=== PATIENT | male | born 1940 | race Caucasian/White ===

== ENCOUNTER → 2020-11-19 08:48 | Outpatient (CLI) | payer MEDICARE, BC, SELFPAY ==
[2020-11-19 17:11] LABS: COVID19 -Nasal RAPID Negative (Negative)
== END ==
PROVIDERS: PCP Family Medicine Sports Medicine; Visit Provider Physical Medicine & Rehabilitation
DX: Z20.822 Contact with and (suspected) exposure to COVID-19 (principal)
CPT/HCPCS: 87635; C9803

== ENCOUNTER 2020-11-20 08:01 | Outpatient (CLI) | payer MEDICARE, BC, SELFPAY ==
--- NOTE | 2020-11-20 08:05 | DI.RAD.S_ITS ---
PROCEDURE: PAIN L INTERLAMINAR/CAUDAL INJ INDICATIONS: SPONDYLOSIS COMPARISON: [facility], CR, XR LUMBAR SPINE 2 OR 3 VIEWS, 10/09/2020, 8:59. FINDINGS: Fluoroscopic spot filming was performed to verify placement of a spinal needle at the L2-L3 level, as labeled on the films. Appropriate location of the needle tip was confirmed by injection of iodinated contrast. L4-L5 spinous process fixation hardware can be seen. IMPRESSION: Intraprocedural examination within normal limits. Dictated by: Joaquin Parker M.D. on 11/20/2020 at 8:44 Approved by: Joaquin Parker M.D. on 11/20/2020 at 8:45
[2020-11-20 08:24] VITALS: BP 169/87; PULSE 70; RESP 19; TEMP 35.9; O2SAT 100
[2020-11-20 08:56] VITALS: BP 182/89; PULSE 70; RESP 16; O2SAT 100
[2020-11-20 09:00] VITALS: BP 189/91; PULSE 70; RESP 14; O2SAT 100
[2020-11-20] MEDS: BETAMETHASONE 30 MG/5 ML MDV 6 MG INJ (09:01)
[2020-11-20] MEDS: IOPAMIDOL 15 ML VIAL 3 ML INJ (09:01)
[2020-11-20] MEDS: BUPIVACAINE 0.25% (PF) VIAL 2 ML INJ (09:01)
[2020-11-20] MEDS: DEXAMETHASONE 10 MG/ML VIAL 20 MG INJ (09:02)
[2020-11-20 09:05] VITALS: BP 187/102; PULSE 69; RESP 17; O2SAT 100
[2020-11-20 09:09] VITALS: BP 183/96; PULSE 68; RESP 15; O2SAT 100
--- NOTE | 2020-11-20 09:13 | PM.PROC.IR.1 ---
Date/Time/Diagnoses Date of procedure: 11/20/20 Time of procedure: 09:13 Pre-procedure diagnosis: 1. HNP WITH RADICULAR FEATURES, 2. MULTILEVEL CENTRAL STENOSIS, Post-procedure diagnosis: same Procedure Notes Procedure: 1. FLUOROSCOPICALLY GUIDED CONTRAST CONTROLLED INTERLAMINAR EPIDURAL STEROID INJECTION - L2/3 Indications: Rl is referred by Dr. Verdugo for treatment of Bilateral Foraminal Stenosis L>R LE symptoms. Physician: Kaiden Dia Total Fluoroscopy time (seconds): 11 Total sedation minutes: 0 Complications: none Procedure in detail & Post-procedure care: FINDINGS Multilevel Central Spinal Stenosis with Nerve Root Compression DESCRIPTION OF PROCEDURE Fluoroscopically guided, contrast-controlled L2/3 translaminar epidural steroid injection. Following review of allergy and review of potential side effects and complications, including, but not necessarily limited to, infection, allergic reaction, local tissue breakdown, temporary as well as permanent nerve injury, paralysis, stroke and possible , the patient indicated that the patient understood and agreed to proceed. An informed consent document was signed by the patient, witnessed by a nurse, and placed in the patient's chart. Additionally, other treatment options including modalities, medications, and physical therapy were reviewed with the patient. After review of previous anaesthesic history and IV conscious sedation the patient was deemed safe to proceed with today?s procedure with IV conscious sedation as ASA class II designation. Safety time-out was performed to confirm patient ID, procedure to be performed and site of procedure. IV sedation was deemed unnecessary and thus not administered by the RN after DO order, titrated to patient comfort during the course of the procedure while the patient remained responsive to all verbal commands. In the prone position, following sterile prep and drape of the lumbar region,the L2/3 translaminar space was identified fluoroscopically. The skin was anesthetized via a 25-gauge, 1.5-inch needle with 1% lidocaine solution. At this point, a 22-gauge short bevel spinal needle was atraumatically introduced and advanced under fluoroscopic guidance into the region of the L2/3 translaminar space. Depth was confirmed on lateral view. Radiological data, including multiple fluoroscopic views of the lumbar spine, reveal a spinal needle at the L2/3 translaminar space. Lateral views then show placement of the needle in the epidural space. Subsequent views show contrast material flowing superiorly and inferiorly in the epidural space. No vascular or intrathecal uptake is observed. At this point, using loss of resistance technique with saline and air, the epidural space was entered. This was confirmed following negative aspiration with injection of approximately 1.5 cc of Isovue 200, showing excellent epidural flow without vascular or intrathecal uptake. At this point, 1cc of 1% lidocaine solution combined with 3cc or 20mg of dexamethasone and 6mg of betamethasone was injected without incident. The patient tolerated the procedure well without signs or symptoms of complications prior to transfer to the recovery area continued monitoring without incident. The patient was then transferred to the recovery area where they were observed for an appropriate period of time after the injection. The patient reported a VAS score of 6 prior to the procedure and a post-procedure VAS of 0. POST OP INSTRUCTIONS The patient was provided a Pain Log to continue to record their response to the target-specific procedure prior to follow-up visit with their referring physician. Additionally, specific post-injection care instructions and a contact number to our office were provided if concerns arise regarding possible complications associated with the procedure are suspected.
[2020-11-20 09:20] VITALS: BP 151/81; PULSE 70; RESP 19; O2SAT 99
== END 2020-11-20 09:20 | disposition home or self-care (01) ==
LOC: RAD 08:05
PROVIDERS: PCP Family Medicine Sports Medicine; Referring Provider Physical Medicine & Rehabilitation; Visit Provider Physical Medicine & Rehabilitation
DX: M51.26 Other intervertebral disc displacement, lumbar region (principal); M51.16 Intervertebral disc disorders with radiculopathy, lumbar region; M48.061 Spinal stenosis, lumbar region without neurogenic claudication
CPT/HCPCS: 62323; J0702; J1100; J2250; J3010

== ENCOUNTER 2021-04-11 09:17 | Outpatient (CLI) | payer MEDICARE, BC, SELFPAY ==
--- NOTE | 2021-04-11 09:19 | DI.RAD.S_ITS ---
PROCEDURE: PAIN L INTERLAMINAR/CAUDAL INJ INDICATIONS: SPONDYLOSIS COMPARISON: [facility], XA, PAIN L INTERLAMINAR/CAUDAL INJ, 11/20/2020, 9:02. FINDINGS: Fluoroscopic spot filming was performed to verify placement of a spinal needle at the L2-L3 level, as labeled on the films. Appropriate location of the needle tip was confirmed by injection of iodinated contrast. IMPRESSION: Intraprocedural examination within normal limits. Dictated by: Joaquin Parker M.D. on 04/11/2021 at 10:13 Approved by: Joaquin Parker M.D. on 04/11/2021 at 10:13
--- NOTE | 2021-04-11 09:39 | PC.NURSE ---
Declines IV or sedation. Patient had previous injection without sedation. Dr. Dia aware.
[2021-04-11 09:40] VITALS: BP 180/92; PULSE 70; RESP 16; TEMP 36.2; O2SAT 96
[2021-04-11 10:34] VITALS: BP 186/92; PULSE 70; RESP 16; O2SAT 98
[2021-04-11] MEDS: IOPAMIDOL 15 ML VIAL 3 ML INJ (10:42)
[2021-04-11 10:43] VITALS: BP 177/91; PULSE 70; RESP 15; O2SAT 97
[2021-04-11] MEDS: BETAMETHASONE 30 MG/5 ML MDV 12 MG INJ (10:43)
[2021-04-11] MEDS: BUPIVACAINE 0.25% (PF) VIAL 2 ML INJ (10:43)
[2021-04-11] MEDS: DEXAMETHASONE 10 MG/ML VIAL 20 MG INJ (10:44)
--- NOTE | 2021-04-11 10:47 | P.PCN_ITS ---
Date/Time/Diagnoses Date of procedure: 04/11/21 Time of procedure: 10:47 Pre-procedure diagnosis: 1. HNP WITH RADICULAR FEATURES, 2. MULTILEVEL CENTRAL STENOSIS, Post-procedure diagnosis: same Procedure Notes Procedure: 1. FLUOROSCOPICALLY GUIDED CONTRAST CONTROLLED INTERLAMINAR EPIDURAL STEROID INJECTION - L2/3 Indications: Rl is referred by Dr. Verdugo for treatment of Bilateral Foraminal Stenosis L>R LE symptoms. Physician: Kaiden Dia Total Fluoroscopy time (seconds): 11 Total sedation minutes: 0 Complications: none Procedure in detail & Post-procedure care: FINDINGS Multilevel Central Spinal Stenosis with Nerve Root Compression DESCRIPTION OF PROCEDURE Fluoroscopically guided, contrast-controlled L2/3 translaminar epidural steroid injection. Following review of allergy and review of potential side effects and complications, including, but not necessarily limited to, infection, allergic reaction, local tissue breakdown, temporary as well as permanent nerve injury, paralysis, stroke and possible , the patient indicated that the patient understood and agreed to proceed. An informed consent document was signed by the patient, witnessed by a nurse, and placed in the patient's chart. Additionally, other treatment options including modalities, medications, and physical therapy were reviewed with the patient. After review of previous anaesthesic history and IV conscious sedation the patient was deemed safe to proceed with today?s procedure with IV conscious sedation as ASA class II designation. Safety time-out was performed to confirm patient ID, procedure to be performed and site of procedure. IV sedation was accomplished with a combination of 2mg Versed and 50mcg of Fentanyl administered by the RN after DO order, titrated to patient comfort during the course of the procedure while the patient remained responsive to all verbal commands. In the prone position, following sterile prep and drape of the lumbar region,the L2/3 translaminar space was identified fluoroscopically. The skin was anesthetized via a 25-gauge, 1.5-inch needle with 1% lidocaine solution. At this point, a 22-gauge short bevel spinal needle was atraumatically introduced and advanced under fluoroscopic guidance into the region of the L2/3 translaminar space. Depth was confirmed on lateral view. Radiological data, including multiple fluoroscopic views of the lumbar spine, reveal a spinal needle at the L2/3 translaminar space. Lateral views then show placement of the needle in the epidural space. Subsequent views show contrast material flowing superiorly and inferiorly in the epidural space. No vascular or intrathecal uptake is observed. At this point, using loss of resistance technique with saline and air, the epidural space was entered. This was confirmed following negative aspiration with injection of approximately 1.5 cc of Isovue 200, showing excellent epidural flow without vascular or intrathecal uptake. At this point, 1 cc of 1% lidoc michelle solution combined with 4cc or 20mg of dexamethasone and 12mg of betamethasone was injected without incident. The patient tolerated the procedure well without signs or symptoms of complications prior to transfer to the recovery area continued monitoring without incident. The patient was then transferred to the recovery area where they were observed for an appropriate period of time after the injection. The patient reported a VAS score of 6 prior to the procedure and a post-procedure VAS of 0. POST OP INSTRUCTIONS The patient was provided a Pain Log to continue to record their response to the target-specific procedure prior to follow-up visit with their referring physician. Additionally, specific post-injection care instructions and a contact number to our office were provided if concerns arise regarding possible complications associated with the procedure are suspected.
[2021-04-11 10:50] VITALS: BP 183/92; PULSE 70; RESP 16; TEMP 36.2; O2SAT 97
== END 2021-04-11 10:55 | disposition home or self-care (01) ==
LOC: RAD 09:19
PROVIDERS: PCP Family Medicine Sports Medicine; Referring Provider Physical Medicine & Rehabilitation; Visit Provider Physical Medicine & Rehabilitation
DX: M51.16 Intervertebral disc disorders with radiculopathy, lumbar region (principal); M48.061 Spinal stenosis, lumbar region without neurogenic claudication
CPT/HCPCS: 62323; J0702; J1100

== ENCOUNTER → 2021-11-12 09:43 | Outpatient (CLI) | payer MEDICARE, BC, SELFPAY ==
[2021-11-12 12:55] LABS: COVID19 -Nasal RAPID Negative (Negative)
== END ==
PROVIDERS: PCP Family Medicine Sports Medicine; Visit Provider Physical Medicine & Rehabilitation
DX: Z20.822 Contact with and (suspected) exposure to COVID-19 (principal)
CPT/HCPCS: 87635; C9803

== ENCOUNTER 2021-11-14 09:29 | Outpatient (CLI) | payer MEDICARE, BC, SELFPAY ==
--- NOTE | 2021-11-14 09:31 | DI.RAD.S_ITS ---
PROCEDURE: PAIN L INTERLAMINAR/CAUDAL INJ INDICATIONS: SPONDYLOSIS COMPARISON: [facility], , PAIN L INTERLAMINAR/CAUDAL INJ, 04/11/2021, 10:38. FINDINGS: Fluoroscopic spot filming was performed to verify placement of a spinal needle at the L2-L3 level, as labeled on the films. Appropriate location of the needle tip was confirmed by injection of iodinated contrast. IMPRESSION: Intraprocedural examination within normal limits. Dictated by: Joaquin Parker M.D. on 11/14/2021 at 10:14 Approved by: Joaquin Parker M.D. on 11/14/2021 at 10:14
[2021-11-14 09:45] VITALS: BP 170/97; PULSE 70; RESP 18; TEMP 35.8; O2SAT 98
--- NOTE | 2021-11-14 10:06 | PC.NURSE ---
Patient declines IV for sedation.
[2021-11-14 10:40] VITALS: BP 194/110; PULSE 69; RESP 17; O2SAT 99
[2021-11-14] MEDS: BUPIVACAINE 0.25% (PF) VIAL 2 ML INJ (10:42)
[2021-11-14] MEDS: DEXAMETHASONE 10 MG/ML VIAL 20 MG INJ (10:43)
[2021-11-14] MEDS: BETAMETHASONE 30 MG/5 ML MDV 6 MG INJ (10:43)
[2021-11-14] MEDS: IOPAMIDOL 15 ML VIAL 3 ML INJ (10:43)
[2021-11-14 10:45] VITALS: BP 187/109; PULSE 69; RESP 15; O2SAT 99
[2021-11-14 10:50] VITALS: BP 176/107; PULSE 69; RESP 14; O2SAT 99
--- NOTE | 2021-11-14 10:53 | PM.PROC.IR.1 ---
Date/Time/Diagnoses Date of procedure: 11/14/21 Time of procedure: 10:53 Pre-procedure diagnosis: 1. HNP WITH RADICULAR FEATURES, 2. MULTILEVEL CENTRAL STENOSIS, Post-procedure diagnosis: same Procedure Notes Procedure: 1. FLUOROSCOPICALLY GUIDED CONTRAST CONTROLLED INTERLAMINAR EPIDURAL STEROID INJECTION - L2/3 Indications: Rl is referred by Dr. Verdugo for treatment of Bilateral Foraminal Stenosis L>R LE symptoms. Physician: Kaiden Dia Total Fluoroscopy time (seconds): 9 Total sedation minutes: 0 Complications: none Procedure in detail & Post-procedure care: FINDINGS Multilevel Central Spinal Stenosis with Nerve Root Compression DESCRIPTION OF PROCEDURE Fluoroscopically guided, contrast-controlled L2/3 translaminar epidural steroid injection. Following review of allergy and review of potential side effects and complications, including, but not necessarily limited to, infection, allergic reaction, local tissue breakdown, temporary as well as permanent nerve injury, paralysis, stroke and possible , the patient indicated that the patient understood and agreed to proceed. An informed consent document was signed by the patient, witnessed by a nurse, and placed in the patient's chart. Additionally, other treatment options including modalities, medications, and physical therapy were reviewed with the patient. After review of previous anaesthesic history and IV conscious sedation the patient was deemed safe to proceed with today?s procedure with IV conscious sedation as ASA class II designation. Safety time-out was performed to confirm patient ID, procedure to be performed and site of procedure. IV sedation was deemed unnecessary and thus not administered by the RN after DO order, titrated to patient comfort during the course of the procedure while the patient remained responsive to all verbal commands. In the prone position, following sterile prep and drape of the lumbar region,the L2/3 translaminar space was identified fluoroscopically. The skin was anesthetized via a 25-gauge, 1.5-inch needle with 1% lidocaine solution. At this point, a 22-gauge short bevel spinal needle was atraumatically introduced and advanced under fluoroscopic guidance into the region of the L2/3 translaminar space. Depth was confirmed on lateral view. Radiological data, including multiple fluoroscopic views of the lumbar spine, reveal a spinal needle at the L2/3 translaminar space. Lateral views then show placement of the needle in the epidural space. Subsequent views show contrast material flowing superiorly and inferiorly in the epidural space. No vascular or intrathecal uptake is observed. At this point, using loss of resistance technique with saline and air, the epidural space was entered. This was confirmed following negative aspiration with injection of approximately 1.5 cc of Isovue 200, showing excellent epidural flow without vascular or intrathecal uptake. At this point, 1 cc of 1% lidocaine solution combined with 3cc or 20mg of dexamethasone and 6mg of betamethasone was injected without incident. The patient tolerated the procedure well without signs or symptoms of complications prior to transfer to the recovery area continued monitoring without incident. The patient was then transferred to the recovery area where they were observed for an appropriate period of time after the injection. The patient reported a VAS score of 6 prior to the procedure and a post-procedure VAS of 0. POST OP INSTRUCTIONS The patient was provided a Pain Log to continue to record their response to the target-specific procedure prior to follow-up visit with their referring physician. Additionally, specific post-injection care instructions and a contact number to our office were provided if concerns arise regarding possible complications associated with the procedure are suspected.
[2021-11-14 10:55] VITALS: BP 188/101; PULSE 84; RESP 16; O2SAT 97
[2021-11-14 10:59] VITALS: BP 191/92; PULSE 70; RESP 18; O2SAT 98
== END 2021-11-14 11:01 | disposition home or self-care (01) ==
LOC: RAD 09:30
PROVIDERS: PCP Family Medicine Sports Medicine; Referring Provider Physical Medicine & Rehabilitation; Visit Provider Physical Medicine & Rehabilitation
DX: M51.16 Intervertebral disc disorders with radiculopathy, lumbar region (principal); M48.061 Spinal stenosis, lumbar region without neurogenic claudication
CPT/HCPCS: 62323; J0702; J1100

== ENCOUNTER → 2022-01-21 10:57 | Outpatient (CLI) | payer MEDICARE, BC, SELFPAY ==
[2022-01-21 12:07] LABS: COVID19 -Nasal RAPID Negative (Negative)
== END ==
PROVIDERS: PCP Family Medicine Sports Medicine; Visit Provider Physical Medicine & Rehabilitation
DX: Z20.822 Contact with and (suspected) exposure to COVID-19 (principal)
CPT/HCPCS: 87635; C9803

== ENCOUNTER 2022-01-23 09:29 | Outpatient (CLI) | payer MEDICARE, BC, SELFPAY ==
--- NOTE | 2022-01-23 09:30 | DI.RAD.S_ITS ---
PROCEDURE: PAIN L/S FACET INJ/BLK 1ST GEO COMPARISON: None. INDICATIONS: SPONDYLOSIS FINDINGS: Fluoroscopic spot filming was performed to verify placement of spinal needles on both sides at the L5-S1 level, as labeled on the films. Appropriate location of the needle tips was confirmed by injection of iodinated contrast. IMPRESSION: Intraprocedural examination demonstrating appropriate positions of the needles. Dictated by: Joaquin Parker M.D. on 01/23/2022 at 11:28 Approved by: Joaquin Parker M.D. on 01/23/2022 at 11:28
[2022-01-23 10:05] VITALS: BP 177/94; PULSE 70; RESP 18; TEMP 36.1; O2SAT 98
[2022-01-23 11:05] VITALS: BP 184/103; PULSE 69; RESP 12; O2SAT 99
[2022-01-23 11:10] VITALS: BP 178/109; PULSE 69; RESP 14; O2SAT 97
[2022-01-23] MEDS: IOPAMIDOL 15 ML VIAL 3 ML INJ (11:12)
[2022-01-23] MEDS: BETAMETHASONE 30 MG/5 ML MDV 6 MG INJ (11:13)
[2022-01-23] MEDS: BUPIVACAINE 0.5% (PF) VIAL 2 ML INJ (11:13)
[2022-01-23] MEDS: LIDOCAINE 1% 20 ML 5 ML INJ (11:14)
[2022-01-23 11:15] VITALS: BP 183/113; PULSE 69; RESP 15; O2SAT 99
[2022-01-23 11:19] VITALS: BP 182/114; PULSE 69; RESP 14; O2SAT 99
--- NOTE | 2022-01-23 11:27 | P.PCN_ITS ---
Date/Time/Diagnoses Date of procedure: 01/23/22 Time of procedure: 11:27 Pre-procedure diagnosis: 1. FACET ARTHROPATHY, 2. AXIAL LBP, 3. MULTILEVEL DDD, Post-procedure diagnosis: same Procedure Notes Procedure: 1. FLUORSCOPICALLY GUIDED CONTRAST CONTROLLED FACET JOINT INJECTIONS BILATERAL L5/S1 Indications: Rl is referred by Dr. Verdugo for treatment of Axial LBP Physician: Kaiden Dia Total Fluoroscopy time (seconds): 12 Total sedation minutes: 0 Complications: none Procedure in detail & Post-procedure care: DESCRIPTION OF PROCEDURE Fluoroscopically guided, contrast-controlled bilateral L5/S1 facet joint injections. Following review of allergy and review of potential side effects and complications, including, but not necessarily limited to, infection, allergic reaction, local tissue breakdown, stroke, temporary or permanent nerve injury, paralysis, and possible , the patient indicated that the patient understood and agreed to proceed. An informed consent document was signed by the patient, witnessed by a nurse, and placed in the patient's chart. Additionally, other treatment options including medications, modalities, and physical therapy were reviewed with the patient. After review of previous anaesthesic history and IV conscious sedation the patient was deemed safe to proceed with today?s procedure with IV conscious sedation as ASA class II designation. Safety time-out was performed to confirm patient ID, procedure to be performed and site of procedure. IV sedation was deemed unnecessary and thus not administered by the RN after DO order, titrated to patient comfort during the course of the procedure while the patient remained responsive to all verbal commands. In the prone position, following sterile prep and drape of the lumbar region, the posterior aspect of the L5/S1 facet joints were identified fluoroscopically. The skin was anesthetized via a 25-gauge 1.5-inch needle with 1% lidocaine solution into the corresponding facet joints. At this point, a 22-gauge 3inch spinal needle was atraumatically introduced and advanced under fluoroscopic guidance into the corresponding facet joints. Following negative aspiration, injections of approximately 0.2cc of Isovue 200 confirmed interarticular placement without vascular uptake. The identical procedure was then performed at the L5/S1 facet joints on the left. Radiological data, including multiple fluoroscopic views of the lumbosacral spine, reveal a spinal needle at the L5/S1 facet joints bilaterally. Subsequent views show flow of contrast material both superiorly and inferiorly within the j oint space without vascular or intrathecal uptake. At this point, a total of 0.5cc including a mixture of 0.25cc Marcaine and 0.25cc betamethasone was injected without complication into each of the corresponding facet joints. The patient tolerated the procedure well without signs or symptoms of complications prior to transfer to the recovery area continued monitoring without incident. The patient was then transferred to the recovery area where they were observed for an appropriate period of time after the injection. The patient reported a VAS score of 7 prior to the procedure and a post-procedure VAS of 0. POST OP INSTRUCTIONS The patient was provided a Pain Log to continue to record their response to the target-specific procedure prior to follow-up visit with their referring physician. Additionally, specific post-injection care instructions and a contact number to our office were provided if concerns arise regarding possible complications associated with the procedure are suspected.
[2022-01-23 11:28] VITALS: BP 189/91; PULSE 69; RESP 20; O2SAT 97
--- NOTE | 2022-01-23 11:32 | PC.NURSE ---
Patient did not receive sedation per his request. Therefore, he did not have an IV. Patient's vital signs are at baseline. OK to discharge per protocol.
== END 2022-01-23 11:31 | disposition home or self-care (01) ==
LOC: RAD 09:30
PROVIDERS: PCP Family Medicine Sports Medicine; Referring Provider Physical Medicine & Rehabilitation; Visit Provider Physical Medicine & Rehabilitation
DX: M47.817 Spondylosis without myelopathy or radiculopathy, lumbosacral region (principal); M51.37 Other intervertebral disc degeneration, lumbosacral region
CPT/HCPCS: 64493; J0702

== ENCOUNTER 2022-10-23 08:12 | Outpatient (CLI) | payer MEDICARE, BC, SELFPAY ==
--- NOTE | 2022-10-23 08:14 | DI.RAD.S_ITS ---
PROCEDURE: PAIN L/S FACET INJ/BLK 1ST GEO COMPARISON: [facility], , PAIN L/S FACET INJ/BLK 1ST GEO, 01/23/2022, 11:11. INDICATIONS: SPONDYLOSIS FINDINGS: Fluoroscopic spot filming was performed to verify placement of spinal needles at the bilateral L5 and S1 level(s), as labeled on the films. Appropriate location(s) of the needle tip(s) was confirmed by injection of iodinated contrast. IMPRESSION: Fluoroscopic guidance for facet joint injections of the lumbosacral spine. Please see procedural note for further details. Dictated by: Paras Pimentel M.D. on 10/23/2022 at 10:34 Approved by: Paras Pimentel M.D. on 10/23/2022 at 10:37
[2022-10-23 08:15] VITALS: BP 148/85; PULSE 78; RESP 16; TEMP 35.8; O2SAT 98
[2022-10-23 09:17] VITALS: BP 177/81; PULSE 69; RESP 14; O2SAT 98
[2022-10-23] MEDS: BUPIVACAINE 0.5% (PF) 30 ML VIAL 5 ML INJ (09:19)
[2022-10-23] MEDS: LIDOCAINE 1% (PF) 5 ML INJ (09:19)
[2022-10-23] MEDS: IOPAMIDOL 15 ML VIAL 3 ML INJ (09:20)
[2022-10-23 09:22] VITALS: BP 181/90; PULSE 69; RESP 17; O2SAT 97
[2022-10-23 09:27] VITALS: BP 172/94; PULSE 69; RESP 14; O2SAT 96
[2022-10-23 09:30] VITALS: BP 151/77; PULSE 18; RESP 99
--- NOTE | 2022-10-23 09:31 | PM.PROC.IR.1 ---
Date/Time/Diagnoses Date of procedure: 10/23/22 Time of procedure: 09:31 Pre-procedure diagnosis: 1. FACET ARTHROPATHY Post-procedure diagnosis: same Procedure Notes Procedure: 1. BILATERAL- L5 and S1 MB BLOCKS Indications: Rl is referred by Dr. Verdugo for treatment of Bilateral Axial LBP. Physician: Kaidne Dia Total Fluoroscopy time (seconds): 10 Total sedation minutes: 0 Complications: none Procedure in detail & Post-procedure care: DESCRIPTION OF PROCEDURE Fluoroscopically guided, contrast-controlled bilateral L5 and S1 medial branch blocks with 0.5cc of 0.5% Marcaine. Following review of allergy and review of potential side effects and complications, including, but not necessarily limited to, infection, allergic reaction, local tissue breakdown, nerve injury, paralysis, stroke and possible , the patient indicated that the patient understood and agreed to proceed. An informed consent document was signed by the patient, witnessed by a nurse, and placed in the patient's chart. After review of previous anaesthesic history and IV conscious sedation the patient was deemed safe to proceed with today?s procedure with IV conscious sedation as ASA class II designation. Safety time-out was performed to confirm patient ID, procedure to be performed and site of procedure. IV sedation was deemed unnecessary and thus not administered by the RN after DO order, titrated to patient comfort during the course of the procedure while the patient remained responsive to all verbal commands In the prone position, following sterile prep and drape of the lumbar region, the right L5 and S1 anatomical location of the medial branch of the dorsal ramus was identified fluoroscopically. Subsequently an anesthetic skin wheal using 1% lidocaine solution was initiated at each of the anatomical spots. Subsequently then a 22-gauge 3.5-inch spinal needle was atraumatically introduced and advanced under fluoroscopic guidance at each of the corresponding sites at the right L5 and S1 MB. After negative aspiration, 0.2 cc of Isovue 200 was injected, confirming placement without vascular or intrathecal uptake. Subsequently then 0.5 cc of 0.5% Marcaine solution was injected at each of the corresponding sites at the right L5 and S1 medial branch locations. The identical procedure was replicated on the left. The patient tolerated the procedure well without signs or symptoms of complications. The patient tolerated the procedure well without signs or symptoms of complications prior to transfer to the recovery area continued monitoring without incident. Post-procedure, the patient was monitored initiating provocative activities to measure the amount of relief from block of the facetogenic pain. The patient reported a VAS of 7 prior to the procedure and a post-procedure VAS of 1. It has been a pleasure to assist in the diagnostic and therapeutic care of your patient. POST OP INSTRUCTIONS The patient was provided with a Pain Log to complete over the next several hours and subsequent days prior to the patient's follow up with the ordering physician. If the patient has thread winder automatic relief to the solution applied, then they may be a candidate for medial branch rhizotomy. The patient is aware, was provided, once again, with a Pain Log and will follow up with the referring physician for review and clinical correlation.
== END 2022-10-23 09:40 | disposition hospice, home (50) ==
LOC: RAD 08:13
PROVIDERS: PCP Family Medicine Sports Medicine; Referring Provider Physical Medicine & Rehabilitation; Visit Provider Physical Medicine & Rehabilitation
DX: M47.817 Spondylosis without myelopathy or radiculopathy, lumbosacral region (principal)
CPT/HCPCS: 64493

== ENCOUNTER 2023-02-24 12:48 | Outpatient (CLI) | payer MEDICARE, BC, SELFPAY ==
--- NOTE | 2023-02-24 12:51 | DI.RAD.S_ITS ---
PROCEDURE: PAIN L/S FACET INJ/BLK 1ST GEO COMPARISON: [facility], XA, PAIN L/S FACET INJ/BLK 1ST GEO, 10/23/2022, 9:18. INDICATIONS: SPONDYLOSIS FINDINGS: Access needle tips at the bilateral L5 and S1 pedicles. Injection of small amount of contrast material confirms positioning of the needles and demonstrates extra thecal location. IMPRESSION: Access needle tips at bilateral L5 and S1 pedicles for bilateral L5 and S1 medial branch blocks. Dictated by: Tati Bell MD, PhD on 02/24/2023 at 14:32 Approved by: Tati Bell MD, PhD on 02/24/2023 at 14:33
[2023-02-24 12:55] VITALS: BP 135/98; PULSE 77; RESP 20; TEMP 36.4; O2SAT 96
[2023-02-24 14:03] VITALS: BP 165/91; PULSE 69; RESP 16; O2SAT 98
[2023-02-24] MEDS: LIDOCAINE 2% INJ SDV 5ML 1 ML INJ (14:07)
[2023-02-24] MEDS: IOPAMIDOL 15 ML VIAL 3 ML INJ (14:07)
[2023-02-24] MEDS: LIDOCAINE 1% 20 ML 5 ML INJ (14:07)
[2023-02-24 14:08] VITALS: BP 162/93; PULSE 69; RESP 15; O2SAT 98
[2023-02-24 14:12] VITALS: BP 157/96; PULSE 69; RESP 16; O2SAT 98
[2023-02-24 14:15] VITALS: BP 157/83; PULSE 63; RESP 16; O2SAT 95
--- NOTE | 2023-02-24 14:16 | PM.PROC.IR.1 ---
Date/Time/Diagnoses Date of procedure: 02/24/23 Time of procedure: 14:16 Pre-procedure diagnosis: 1. FACET ARTHROPATHY Post-procedure diagnosis: same Procedure Notes Procedure: 1. BILATERAL- L5 and S1 MB BLOCKS Indications: Rl is referred by Dr. Verdugo for treatment of Bilateral Axial LBP. Physician: Kaiden Dia Total Fluoroscopy time (seconds): 11 Total sedation minutes: 0 Complications: none Procedure in detail & Post-procedure care: DESCRIPTION OF PROCEDURE Fluoroscopically guided, contrast-controlled bilateral L5 and S1 medial branch blocks with 0.5cc of 2% Lidocaine. Following review of allergy and review of potential side effects and complications, including, but not necessarily limited to, infection, allergic reaction, local tissue breakdown, nerve injury, paralysis, stroke and possible , the patient indicated that the patient understood and agreed to proceed. An informed consent document was signed by the patient, witnessed by a nurse, and placed in the patient's chart. After review of previous anaesthesic history and IV conscious sedation the patient was deemed safe to proceed with today?s procedure with IV conscious sedation as ASA class II designation. Safety time-out was performed to confirm patient ID, procedure to be performed and site of procedure. IV sedation was deemed unnecessary and thus not administered by the RN after DO order, titrated to patient comfort during the course of the procedure while the patient remained responsive to all verbal commands In the prone position, following sterile prep and drape of the lumbar region, the right L5 and S1 anatomical location of the medial branch of the dorsal ramus was identified fluoroscopically. Subsequently an anesthetic skin wheal using 1% lidocaine solution was initiated at each of the anatomical spots. Subsequently then a 22-gauge 3.5-inch spinal needle was atraumatically introduced and advanced under fluoroscopic guidance at each of the corresponding sites at the right L5 and S1 MB. After negative aspiration, 0.2cc of Isovue 200 was injected, confirming placement without vascular or intrathecal uptake. Subsequently then 0.5 cc of 2% lidocaine solution was injected at each of the corresponding sites at the right L5 and S1 medial branch locations. The identical procedure was replicated on the left. The patient tolerated the procedure well without signs or symptoms of complications. The patient tolerated the procedure well without signs or symptoms of complications prior to transfer to the recovery area continued monitoring without incident. Post-procedure, the patient was monitored initiating provocative activities to measure the amount of relief from block of the facetogenic pain. The patient reported a VAS of 7 prior to the procedure and a post-procedure VAS of 1. It has been a pleasure to assist in the diagnostic and therapeutic care of your patient. POST OP INSTRUCTIONS The patient was provided with a Pain Log to complete over the next several hours and subsequent days prior to the patient's follow up with the ordering physician. If the patient has technician chemical cleaning relief to the solution applied, then they may be a candidate for medial branch rhizotomy. The patient is aware, was provided, once again, with a Pain Log and will follow up with the referring physician for review and clinical correlation.
== END 2023-02-24 14:15 | disposition home or self-care (01) ==
PROVIDERS: PCP Family Medicine Sports Medicine; Referring Provider Physical Medicine & Rehabilitation; Visit Provider Physical Medicine & Rehabilitation
DX: M47.817 Spondylosis without myelopathy or radiculopathy, lumbosacral region
CPT/HCPCS: 64493

== ENCOUNTER 2023-04-09 10:42 | Outpatient (CLI) | payer MEDICARE, BC, SELFPAY ==
[2023-04-09] VITALS (10 sets, daily range): BP systolic 118–158; BP diastolic 67–83; PULSE 69–70; RESP 10–18; TEMP 36.1; O2SAT 97–99
--- NOTE | 2023-04-09 10:44 | DI.RAD.S_ITS ---
PROCEDURE: PAIN L/S MED/LAT N RFA BILAT INDICATIONS: SPONDYLOSIS COMPARISON: None. FINDINGS: Fluoroscopic spot filming was performed to verify placement of spinal needles at the bilateral L5 and S1 level(s), as labeled on the films. Appropriate location(s) of the needle tip(s) was confirmed by injection of iodinated contrast. IMPRESSION: Fluoroscopic support for lumbosacral RFA. Please see separate procedure note for further details. Dictated by: Paras Pimentel M.D. on 04/09/2023 at 12:37 Approved by: Paras Pimentel M.D. on 04/09/2023 at 12:38
[2023-04-09] MEDS: MIDAZOLAM 2 MG/2 ML VIAL IV (11:35)
[2023-04-09] MEDS: BUPIVACAINE 0.5% (PF) 10 ML VIAL 5 ML INJ (11:37)
[2023-04-09] MEDS: LIDOCAINE 1% 20 ML 5 ML INJ (11:37)
--- NOTE | 2023-04-09 12:07 | P.PCN_ITS ---
Date/Time/Diagnoses Date of procedure: 04/09/23 Time of procedure: 12:07 Pre-procedure diagnosis: 1. RECALCITRANT FACET ARTHROPATHY Post-procedure diagnosis: same Procedure Notes Procedure: 1. BILATERAL L5 MEDIAL BRANCH RADIOFREQUENCY NEUROTOMY AND BILATERAL S1 DORSAL RAMUS BRANCH RADIOFREQUENCY NEUROTOMY. Indications: Rl is referred by Dr. Verdugo for treatment of facet arthropathy. Physician: Kaiden Dia Total Fluoroscopy time (seconds): 17 Total sedation minutes: 28 Complications: none Procedure in detail & Post-procedure care: DESCRIPTION OF PROCEDURE Bilateral L5 medial branch radiofrequency neurotomy and bilateral S1 dorsal ramus branch radiofrequency neurotomy under fluoroscopy with conscious sedation. The patient is well known to this clinic having undergone previous facet injections with good but temporary relief. The patient has experienced appropriate, concordant relief with previous facet and median branch blocks but the patient's pain has been recalcitrant to further conservative measures. Therefore, based upon the patient's relief and persistent symptoms, the patient is considered an appropriate candidate for facet rhizotomy. All of the patient's questions regarding the risks versus benefits of the procedure, including, but not limited to, bleeding, infection, temporary as well as lasting nerve injury, paralysis, stroke, and , as well treatment alternatives were answered to satisfaction. After obtaining informed consent, denial of pertinent drug allergies, as well as being made aware of the potential risks of bleeding, infection, spinal cord trauma, paralysis, temporary and permanent nerve damage, seizure, stroke, and possible , the patient was brought to the fluoroscopy suite and positioned prone on the fluoroscopy table. The lumbar region was prepped in usual sterile fashon and covered with a fenestrated drape in the usual sterile fashion. Appropriate monitors applied including pulse oximeter, pulse, and blood pressure for regular monitoring throughout the procedure. After review of previous anaesthesic history and IV conscious sedation the patient was deemed safe to proceed with today?s procedure with IV conscious sedation as ASA class II designation. Safety time-out was performed to confirm patient ID, procedure to be performed and site of procedure. IV sedation was accomplished with a combination of 2mg of Versed was administered by the RN after DO order, titrated to patient comfort during the course of the procedure while the patient remained responsive to all verbal commands. After local infiltration using 1% lidocaine, under fluoroscopic guidance, a 10- cm RF insulated needle with a 10-mm active tip was positioned parallel to the junction of the bilateral sacral ala and the superior articulating process where the S1 dorsal ramus resides. Needle placement was confirmed with motor stimulation of .5v on the right; motor stimulation of .6v on the left, which produced local stimulation without radicular component. The stimulation was then increased to 2v with, once again, only local multifidus stimulation without radicular component. This was then followed by two discreet lesions performed at 80 degrees Celsius for 90 seconds each. The needle was then removed and the identical procedure was performed along the length of the bilateral L5 medial branch with motor stimulation at .7v on the right; motor stimulation at .6v on the left. The patient tolerated the procedure well without signs or symptoms of complications prior to transfer to the recovery area continued monitoring without incident. The patient was then transferred to the recovery area where they were observed for an appropriate period of time after the injection. The patient reported a VAS score of 7 prior to the procedure and a post- procedure VAS of 1. POST OP INSTRUCTIONS The patient was provided a Pain Log to continue to record the patient's response to the target-specific procedure prior to the patient's follow-up visit with the referring physician. Additionally, specific post-injection care instructions and a contact number to our office were provided if concerns arise regarding possible complications associated with the procedure are suspected.
== END 2023-04-09 12:18 | disposition home or self-care (01) ==
PROVIDERS: PCP Family Medicine Sports Medicine; Referring Provider Physical Medicine & Rehabilitation; Visit Provider Physical Medicine & Rehabilitation
DX: M47.817 Spondylosis without myelopathy or radiculopathy, lumbosacral region (principal)
CPT/HCPCS: 64635; 99152; 99153; J2250

== ENCOUNTER → 2025-01-09 09:39 | Outpatient (CLI) | payer MEDICARE, BC, SELFPAY ==
--- NOTE | 2025-01-09 09:42 | DI.RAD.S_ITS ---
PROCEDURE: XR LUMBAR SPINE MIN 4V INDICATIONS: BACK PAIN TECHNIQUE: 5 views of the lumbar spine were acquired, including bilateral oblique views. COMPARISON: [facility], CT, CT IVP, 12/15/2023, 15:47. FINDINGS: Bones: 5 nonrib-bearing vertebrae are present. No vertebral body compression fractures. No suspicious bony lesions. There is a fusion device between the spinous processes of the L4 and L5 levels posteriorly. There is mild retrolisthesis seen at L1-L2, L2-L3, and L3-L4. There is moderate to severe disc space narrowing seen at L1-L2, L2-L3, and L5-S1. Lower lumbar spine facet arthropathy is seen. Multiple levels of endplate irregularity and sclerosis can be seen, which are worst involving the thoracolumbar junction. Bridging endplate osteophytes can be seen within the thoracolumbar junction. Soft tissues: Overlying bowel gas pattern is normal. No suspicious soft tissue calcifications. Pacer leads are partially seen. Oblique images: No pars defects. IMPRESSION: Generalized degenerative changes are seen. No erika acute abnormality can be seen by plain film. Dictated by: Joaquin Parker M.D. on 01/09/2025 at 9:25 Approved by: Joaquin Parker M.D. on 01/09/2025 at 9:27
== END ==
PROVIDERS: PCP Family Medicine; Referring Provider Physical Medicine & Rehabilitation; Visit Provider Physical Medicine & Rehabilitation
DX: M47.816 Spondylosis without myelopathy or radiculopathy, lumbar region (principal); M48.00 Spinal stenosis, site unspecified; M41.26 Other idiopathic scoliosis, lumbar region; Z86.79 Personal history of other diseases of the circulatory system; M51.26 Other intervertebral disc displacement, lumbar region; Z95.0 Presence of cardiac pacemaker
CPT/HCPCS: 72110; 99214